=== PATIENT | female | born 1960 | race Caucasian/White ===

== ENCOUNTER 2017-08-26 21:12 | Emergency (ER) | payer MEDICARE, OTHER ==
[~2017-08-26] VITALS: Ht 147.3 cm; Wt 117.0 kg
[~2017-08-26 21:12] MED LIST: ALBU90OI6 INH; ALBU90OI61; CHOL10002 PO; DIAZ2 PO; Dicyclomine HCl20 MG PO; ERGO400 PO; HYDACE5325 PO; HYDCHL25 PO; LEVOTHYROXINE PO; LEVSOD100 PO; LISI5 PO; NAPR375 PO; OMEP20ER PO; OXYB5 PO; OXYC5 PO; PARO20 PO; PAXIL PO; POTASSIUM PO; PROM25 PO; Roxicodone5 MG PO; TRAZ50 PO; TRAZODONE PO; VITAMIN D400 UNI1 PO
[2017-08-26] MEDS ORDERED: Metformin HCl1000 MG PO (21:25)
[2017-08-26] MEDS ORDERED: Preparation H1 EAC1 PR (22:16)
== END 2017-08-26 22:27 | disposition home or self-care (01) ==
LOC: ER 21:12
DX: K64.4 Residual hemorrhoidal skin tags (principal); Z88.8 Allergy status to other drugs, medicaments and biological substances; Z91.012 Allergy to eggs; Z79.899 Other long term (current) drug therapy; Z79.84 Long term (current) use of oral hypoglycemic drugs; E03.9 Hypothyroidism, unspecified; F32.9 Major depressive disorder, single episode, unspecified; J45.909 Unspecified asthma, uncomplicated; Z87.891 Personal history of nicotine dependence
CPT/HCPCS: 99283

== ENCOUNTER 2021-05-06 16:28 | Emergency (ER) | payer MEDICARE, OTHER ==
[~2021-05-06] VITALS: Ht 160 cm; Wt 117.9 kg
[~2021-05-06 16:28] MED LIST changes: +Metformin HCl1000 MG PO; +Preparation H1 EAC1 PR
[2021-05-06 17:09] LABS: BASOPHILS ABSOLUTE AUTO 0.04 K/mm3 (0.00-0.23); BASOPHILS PERCENT AUTO 1 % (0-2); EOSINOPHILS PERCENT AUTO 5 % (0-6); Hematocrit 34.3 % (33.0-51.0); Hemoglobin 11.9 g/dL (11.5-16.0); IMMATURE GRAN ABSOLUTE AUTO 0.05 K/mm3 (0.00-0.10); IMMATURE GRAN PERCENT AUTO 1 % (0-1); LYMPHOCYTES ABSOLUTE AUTO 1.19 K/mm3 (0.84-5.20); LYMPHOCYTES PERCENT AUTO 20 % (21-46); MONOCYTES ABSOLUTE AUTO 0.36 K/mm3 (0.16-1.47); MONOCYTES PERCENT AUTO 6 % (4-13); Mean Corpuscular HGB 29.8 pg (26.0-34.0); Mean Corpuscular HGB Conc 34.7 g/dL (31.5-36.5); Mean Corpuscular Volume 86 fL (80-100); Mean Platelet Volume 9.8 fL (9.1-12.4); NEUTROPHILS ABSOLUTE AUTO 4.06 K/mm3 (1.96-9.15); NEUTROPHILS PERCENT AUTO 68 % (41-73); Platelet Count 153 K/mm3 (150-400); RDW Coefficient Variation 13.4 % (11.7-14.2); RDW Standard Deviation 41.8 fL (35.1-46.3)
[2021-05-06 17:24] LABS: Alanine Aminotransfer (ALT/SGP 31 U/L (12-78); Albumin, Blood 3.8 g/dL (3.4-5.0); Albumin/Globulin Ratio 1.1 (0.8-1.8); Alk Phos 85 U/L (50-136); Anion Gap 6 mmol/L (6-16); Aspartate Aminotrans (AST/SGOT 23 U/L (12-37); Bilirubin, Total 0.4 mg/dL (0.1-1.0); Blood Urea Nitrogen 27 mg/dL (8-24); Bun/Creatinine Ratio 27.3 (12.0-20.0); CO2, Blood 28 mmol/L (21-32); Calcium, Blood 9.3 mg/dL (8.5-10.1); Chloride, Blood 101 mmol/L (98-108); Creatinine, Blood 0.99 mg/dL (0.40-1.00); Globulin, Blood 3.6 g/dL (2.2-4.0); Glomerular Filtration Rate 57 (60-); Glucose, Blood 121 mg/dL (70-99); Potassium, Blood 3.8 mmol/L (3.5-5.5); Sodium, Blood 135 mmol/L (136-145); Total Protein, Blood 7.4 g/dL (6.4-8.2); Troponin I <0.015 ng/mL (0.000-0.040)
== END 2021-05-06 18:52 | disposition home or self-care (01) ==
LOC: ER 16:28
PROVIDERS: Physician Assistant
DX: R07.9 Chest pain, unspecified (principal)
CPT/HCPCS: 36415; 71046; 80053; 84484; 85025; 93005; 93010; 99285-25

== ENCOUNTER 2025-03-21 18:03 | Emergency (ER) | payer MEDICARE, OTHER ==
[~2025-03-21] VITALS: Ht 147.3 cm; Wt 113.4 kg
[~2025-03-21 18:03] MED LIST changes: +GLUCOPHAGE1000 M2 PO; -Metformin HCl1000 MG PO
[2025-03-21] MEDS ORDERED: Ketorolac Tromethamine 15mg Vial IM ONE (21:05)
[2025-03-21 21:37] VITALS: BP 143/83
== END 2025-03-21 21:54 | disposition home or self-care (01) ==
LOC: ER 18:03
DX: M25.531 Pain in right wrist (principal); G47.30 Sleep apnea, unspecified; E03.9 Hypothyroidism, unspecified; J45.909 Unspecified asthma, uncomplicated; R73.03 Prediabetes; Z87.891 Personal history of nicotine dependence; Z88.6 Allergy status to analgesic agent; Z91.012 Allergy to eggs; Z79.890 Hormone replacement therapy; Z79.84 Long term (current) use of oral hypoglycemic drugs; Z79.899 Other long term (current) drug therapy
CPT/HCPCS: 73110; 96372; 99283-25; J1885